=== PATIENT | male | born 1940 | race Caucasian/White ===

== ENCOUNTER 2016-12-08 11:28 | Day surgery (SDC) | payer OTHER ==
[2016-12-08] MEDS ORDERED: LASIX ONE (12:10)
[2016-12-08] MEDS ORDERED: BENADRYL ONE (12:10)
[2016-12-08] MEDS ORDERED: TYLENOL ONE (12:10)
[2016-12-08] MEDS ORDERED: NS 250 ML ONE (12:10)
[2016-12-08] MEDS ORDERED: HEPARIN ONE (13:27)
[2016-12-08 14:40] VITALS: BP 110/72
== END 2016-12-08 14:00 | disposition home or self-care (01) ==
LOC: INF 11:28
PROVIDERS: ATTEND Internal Medicine Hematology & Oncology
DX: D69.6 Thrombocytopenia, unspecified (principal); Z79.84 Long term (current) use of oral hypoglycemic drugs; Z79.4 Long term (current) use of insulin; Z79.01 Long term (current) use of anticoagulants; Z79.52 Long term (current) use of systemic steroids; Z79.899 Other long term (current) drug therapy
CPT/HCPCS: 36430; 86850; 86900; 86901; J1940; J7050; P9035